=== PATIENT | female | born 1965 | race Caucasian/White ===

== ENCOUNTER 2021-08-22 04:50 | Emergency (ER) | payer SELFPAY ==
[2021-08-22] MEDS ORDERED: Lidocaine 1% PF 5 ML VIAL ONE (04:57)
== END 2021-08-22 05:20 | disposition home or self-care (01) ==
LOC: ERS 04:50
DX: K04.7 Periapical abscess without sinus (principal); F17.200 Nicotine dependence, unspecified, uncomplicated
CPT/HCPCS: 41800